=== PATIENT | male | born 1950 | race American Indian/Alaskan Native ===

== ENCOUNTER 2017-02-11 11:33 | Emergency (ER) | payer MEDICARE ==
[2017-02-11 12:42] LABS: Basophils % (Auto) 0.6 % (0.0-1.8); Eosinophils % (Auto) 3.1 % (0.0-4.3); Hematocrit 44.9 % (35.5-45.6); Hemoglobin 14.3 gm/dl (11.8-15.2); Mean Corpuscular HGB Conc 32 % (32-34); Mean Corpuscular Hemoglobin 27 pg (28-32); Mean Corpuscular Volume 86 fl (84-94); Platelet Count 236 K/mm3 (140-440); Red Blood Count 5.23 M/mm3 (3.65-5.03); Red Cell Distribution Width 14.7 % (13.2-15.2); White Blood Count 6.5 K/mm3 (4.5-11.0)
[2017-02-11 12:58] LABS: Anion Gap 15 mmol/L; Blood Urea Nitrogen 21 mg/dL (9-20); Calcium 9.1 mg/dL (8.4-10.2); Carbon Dioxide 28 mmol/L (22-30); Chloride 105.7 mmol/L (98-107); Glucose 100 mg/dL (75-100); Potassium 3.9 mmol/L (3.6-5.0); Sodium 145 mmol/L (137-145)
--- NOTE | 2017-02-11 15:27 | Emergency Department Report ---
ED Extremity Problem HPI - General Chief complaint: Extremity Injury, Lower Stated complaint: LEG PAIN Time Seen by Provider: 02/11/17 15:15 Source: patient Mode of arrival: Ambulatory Limitations: No Limitations - History of Present Illness Initial comments: 66-year-old male presents to the emergency department complaining of leg swelling. Patient states his right leg is been swelling for approximately 4 days. His left leg began swelling yesterday. He describes achy pain in his lower legs and ankles. He also reports some mild difficulty breathing with exertion. He denies chest pain or fever. He has seen his primary care physician for this. He states that his doctor thought it may be early gout. Patient has no other complaints. MD Complaint: extremity swelling -: Gradual, days(s) (4) Location: bilateral lower extremity History of Same: No -: Yes myalgia, Yes associated dyspnea Radiation: none Severity scale (0 -10): 2 Quality: aching Consistency: constant Improves with: nothing Worsens with: walking Associated Symptoms: denies other symptoms - Related Data Home Medications Medication Instructions Recorded Confirmed Last Taken Amlodipine Besylate [Norvasc] 10 mg PO DAILY 07/07/16 07/07/16 Unknown Nebivolol HCl [Bystolic] 5 mg PO QDAY 07/07/16 07/07/16 Unknown Sildenafil Citrate [Viagra] 50 mg PO DAILY PRN 07/07/16 07/07/16 Unknown Previous Rx's Medication Instructions Recorded Last Taken Type Levofloxacin [Levaquin] 750 mg PO QDAY #5 tablet 07/09/16 Unknown Rx Furosemide [Lasix] 20 mg PO QDAY #14 tablet 02/11/17 Unknown Rx Allergies Allergy/AdvReac Type Severity Reaction Status Date / Time No Known Allergies Allergy Verified 02/11/17 11:57 ED Review of Systems ROS: Stated complaint: LEG PAIN Other details as noted in HPI Comment: All other systems reviewed and negative Respiratory: SOB with exertion Cardiovascular: edema ED Past Medical Hx - Past Medical History Previous Medical History?: Yes Hx Hypertension: Yes Hx HIV: No - Surgical History Past Surgical History?: Yes Additional Surgical History: CYST REMOVED FROM HEAD, hernia repair - Family History Family history: no significant - Social History Smoking Status: Never Smoker Substance Use Type: None - Medications Home Medications: Home Medications Medication Instructions Recorded Confirmed Last Taken Type Amlodipine Besylate [Norvasc] 10 mg PO DAILY 07/07/16 07/07/16 Unknown History Nebivolol HCl [Bystolic] 5 mg PO QDAY 07/07/16 07/07/16 Unknown History Sildenafil Citrate [Viagra] 50 mg PO DAILY PRN 07/07/16 07/07/16 Unknown History Levofloxacin [Levaquin] 750 mg PO QDAY #5 tablet 07/09/16 Unknown Rx Furosemide [Lasix] 20 mg PO QDAY #14 tablet 02/11/17 Unknown Rx ED Physical Exam - General Limitations: No Limitations General appearance: alert, in no apparent distress - Head Head exam: Present: atraumatic, normocephalic - Eye Eye exam: Present: normal appearance, PERRL, EOMI - ENT ENT exam: Present: normal exam, normal orophraynx, mucous membranes moist - Neck Neck exam: Present: normal inspection, full ROM. Absent: tenderness - Respiratory Respiratory exam: Present: normal lung sounds bilaterally. Absent: respiratory distress - Cardiovascular Cardiovascular Exam: Present: regular rate, normal rhythm, normal heart sounds - GI/Abdominal GI/Abdominal exam: Present: soft, normal bowel sounds. Absent: distended, tenderness - Extremities Exam Extremities exam: Present: normal inspection, full ROM, pedal edema (trace bilateral edema bilateral lower extremities extending to mid calf. No erythema noted.). Absent: tenderness - Back Exam Back exam: Present: normal inspection, full ROM. Absent: tenderness - Neurological Exam Neurological exam: Present: alert, oriented X3. Absent: motor sensory deficit - Skin Skin exam: Present: warm, dry, intact ED Course Vital Signs 02/11/17 02/11/17 11:59 15:20 Temperature 97.8 F Pulse Rate 87 Respiratory 18 18 Rate Blood Pressure 145/94 O2 Sat by Pulse 95 95 Oximetry ED Medical Decision Making - Lab Data Result diagrams: 02/11/17 12:26 02/11/17 12:26 - EKG Data -: EKG Interpreted by Me EKG shows normal: sinus rhythm, axis, ST-T waves Rate: normal - EKG Data When compared to previous EKG there are: no significant change Interpretation: unchanged when compared t (07/07/2016), LVH, other (prolonged QT interval) - Radiology Data Radiology results: image reviewed interpreted by me: Chest x-ray shows no acute cardiopulmonary abnormality. - Medical Decision Making Lab and imaging results reviewed and discussed with the patient. There is no indication for admission this time. Patient will be started on low-dose Lasix and is instructed to follow up with his primary care physician. - Differential Diagnosis peripheral edema, renal failure, CHF Critical care attestation.: If time is entered above; I have spent that time in minutes in the direct care of this critically ill patient, excluding procedure time. ED Disposition Clinical Impression: Peripheral edema Disposition: DC-01 TO HOME OR SELFCARE Is pt being admited?: No Condition: Stable Instructions: Leg Edema (ED) Prescriptions: Furosemide [Lasix] 20 mg PO QDAY #14 tablet Referrals: PRIMARY CARE, [Primary Care Provider] - 3-5 Days Time of Disposition: 15:31
[2017-02-11 15:36] VITALS: BP 139/88
--- NOTE | 2017-02-12 09:30 | XRay Report ---
CHEST TWO VIEWS: 02/11/17 11:33:00 CLINICAL: Shortness of breath. COMPARISON: 07/07/16 FINDINGS: The heart is normal size. Large central pulmonary vessels. Bilateral perihilar reticular interstitial opacities. No pulmonary elevation. The bones and soft tissues are normal. IMPRESSION: Bilateral perihilar interstitial opacities are of uncertain chronicity and significance. Differential includes bilateral interstitial pneumonia, noncardiogenic pulmonary edema and chronic interstitial disease.
== END 2017-02-11 15:36 | disposition home or self-care (01) ==
LOC: ED 11:33
DX: R60.9 Edema, unspecified (principal); I10 Essential (primary) hypertension
CPT/HCPCS: 36415; 71020; 80048; 83880; 84484; 85025; 93005; 93010; 99284

== ENCOUNTER 2017-09-18 11:42 | Outpatient (CLI) | payer MEDICARE ==
--- NOTE | 2017-09-18 12:28 | XRay Report ---
ROUTINE CHEST, TWO VIEWS: HISTORY: Pulmonary nodule. Compared to the chest x-ray dated 02/[address] angio chest dated 07/08/16. Heart size is normal. Normal mediastinal contour. Normal pulmonary vascularity. The lungs are clear with no evidence of infiltrate, pleural effusion or pneumothorax. There is mild interstitial prominence which is unchanged since the previous exam. No pulmonary nodule is detected on x-ray. The bony structures are intact. IMPRESSION: Mild chronic interstitial changes which are unchanged since 02/11/17. No acute process. No pulmonary nodules detected on chest x-ray. If further evaluation is needed, CT chest with contrast is recommended.
== END 2017-09-18 11:43 | disposition home or self-care (01) ==
LOC: XRAY 11:42
PROVIDERS: ATTEND Specialist
DX: R91.1 Solitary pulmonary nodule (principal)
CPT/HCPCS: 71046